=== PATIENT | male | born 1995 | race Caucasian/White ===

== ENCOUNTER 2023-06-28 19:26 | Emergency (ER) | payer OTHER, SELFPAY ==
[2023-06-28 19:37] VITALS: BP 145/96; PULSE 82; RESP 18; TEMP 36.7; O2SAT 98; BMI 27.8
[2023-06-28] MEDS: KETOROLAC 30 MG/ML VIAL IM (21:25)
--- NOTE | 2023-06-28 22:04 | ED_ITS ---
HPI - Neck Pain/Injury General Chief Complaint: Neck Pain/Injury Stated Complaint: neck locked muscles sore neck wont turn Time Seen by Provider: 06/28/23 22:04 Mode of arrival: Ambulatory History of Present Illness HPI Narrative: Patient is a 28-year-old healthy male who presents today with sudden onset severe neck pain. 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 He can not turn his head right or left he has been taking ibuprofen throughout the day without any sort of relief. No numbness tingling or weakness he can move his hands and arms okay but can not turn his head. Icing it and heating it without any sort of relief. Related Data Previous Rx's Medication Instructions Recorded hydrocodone 5 mg-acetaminophen 325 1 tab PO Q6H PRN pain #10 tabs 06/28/23 mg tablet methocarbamol 750 mg tablet 1,500 mg (2 x 750 mg) PO Q12HR #20 06/28/23 tabs Allergies Allergy/AdvReac Type Severity Reaction Status Date / Time No Known Drug Allergies Allergy Verified 06/28/23 21:20 Exam Initial Vital Signs Initial Vital Signs: Vital Signs Temperature 98.1 F 06/28/23 19:37 Pulse Rate 82 06/28/23 19:37 Respiratory Rate 18 06/28/23 19:37 Blood Pressure 145/96 H 06/28/23 19:37 Pulse Oximetry 98 06/28/23 19:37 Oxygen Delivery Method Room Air 06/28/23 19:37 GENERAL: Alert well-appearing 28-year-old male NECK: Paraspinal muscle tenderness significant spasm noted on the right side but tender in the left as well. CARDIOVASCULAR: peripheral pulses in tact, cap refill <2 sec RESPIRATORY: No respiratory distress, speaks in full sentences without difficulty EXTREMITIES: Normal range of motion, no clubbing or edema. 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 Normal gait and speech. SKIN: Warm, dry, no petechiae, no rashes or lesions. Course Orders Ordered: Discontinued Medications Hydrocodone Bitart/Acetaminophen (Hydrocodone/Acet 5/325 Prepack) 1 bottle MISC DIRECTED ONE Stop: 06/28/23 22:18 Last Admin: 06/28/23 22:24 Dose: 1 bottle Documented By: YASMINE Diazepam (Diazepam 5 Mg Tablet) 5 mg PO NOW ONE Stop: 06/28/23 22:18 Last Admin: 06/28/23 22:23 Dose: 5 mg Documented By: YASMINE Ketorolac Tromethamine (Ketorolac 30 Mg/Ml Vial) 30 mg IM NOW ONE Stop: 06/28/23 21:16 Last Admin: 06/28/23 21:25 Dose: 30 mg Documented By: MINDY Vital Signs Vital signs: Vital Signs - 8 hr 06/28/23 19:37 06/28/23 22:35 Temperature 98.1 F Pulse Rate 82 77 Respiratory Rate 18 18 Blood Pressure 145/96 H 141/79 H Pulse Oximetry 98 98 Oxygen Delivery Method Room Air Room Air MDM - Neck Pain/Injury MDM Narrative Medical decision making narrative: Patient 28-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 Extremely tender on the right decreased range of motion. Consistent with muscle spasm. He was given Toradol Valium and [place] in the emergency department. Did not fall, no need for imaging. Discharge Plan Departure Patient Disposition: Home Clinical Impression: Cervical muscle strain Instructions: DI for Muscle Spasm Activity Restrictions/Additional Instructions: *You have been diagnosed with neck muscle spasm *What to do: Increase activity as tolerated recommend heat over ice. *Continue to take medications as directed Ibuprofen 600 mg every 6 hours for wipy-an-rvmrhlol pain [place] 1-2 tablets every 6 hours if needed for severe pain Methocarbamol 750-1500 mg every 12 hours if needed for muscle spasm *Follow up with your primary care provider in 2-3 days or call [phone] *Return to ER if you should have increasing pain numbness tingling weakness or any new, worsening or concerning symptoms CONTROLLED SUBSTANCE DISCHARGE (Narcotoic/benzodiazepine/Flexeril/Phenergan) 1. You have been prescribed narcotic medications, it does have acetaminophen/Tylenol/paracetamol in it, DO NOT TAKE MORE THAN 4,00mg in 24 hours of Tylenol. TRAMADOL DOES NOT CONTAIN TYLENOL 2. Please understand that we cannot provide further refills of narcotics, benzodiazepines or controlled substances through the ED and her pain management will need to be through your provider. 3. While on these medications you cannot drive or operate heavy machinery. 4. You cannot sign legal documents or perform any duties such as this. 5. As long as you're taking opiate pain medications he should also be taking a stool softener such as Colace, Dulcolax, MiraLAX or prune juice, to help avoid constipation. Prescriptions: New hydrocodone-acetaminophen 5-325 mg tablet 1 tab PO Q6H PRN (Reason: pain) Qty: 10 0RF methocarbamol 750 mg tablet 1,500 mg PO Q12HR Qty: 20 0RF Stand Alone Forms: Patient Portal/API
[2023-06-28] MEDS: diazePAM 5 MG TABLET PO (22:23)
[2023-06-28] MEDS: HYDROCODONE/ACET 5/325 PREPACK 1 BOTTLE MISC (22:24)
[2023-06-28 22:35] VITALS: BP 141/79; PULSE 77; RESP 18; O2SAT 98
== END 2023-06-28 22:38 | disposition home or self-care (01) ==
PROVIDERS: Emergency Provider Emergency Medicine
DX: S16.1XXA Strain of muscle, fascia and tendon at neck level, initial encounter (principal); X50.9XXA Other and unspecified overexertion or strenuous movements or postures, initial encounter; Y93.B9 Activity, other involving muscle strengthening exercises
CPT/HCPCS: 96372; 99283; J1885